=== PATIENT | female | born 1950 | race African-American/Black ===

== ENCOUNTER 2025-01-16 16:39 | Emergency (ER) | payer OTHER ==
[2025-01-16 16:49] VITALS: BMI 26.4
[2025-01-16] MEDS ORDERED: ACETAMINOPHEN INJECTION 100 ML ONE (17:58)
[2025-01-16 18:17] LABS: INR 1.25 (0.83-1.09); PROTHROMBIN TIME (PATIENT) 13.6 SEC (9.7-13.0)
[2025-01-16 18:21] LABS: ACTIVATED PTT 27.8 SECONDS (25.2-36.5)
[2025-01-16 18:26] LABS: MCHC 32.0 g/dl (32.2-35.5); MEAN CELL VOLUME 87.4 fl (79.4-94.8); MEAN PLT VOLUME 9.6 fl (9.4-12.3); RDW 14.8 % (12.4-16.6)
[2025-01-16] MEDS: ACETAMINOPHEN 1000 MG/100 ML BAG IVPB ONE (18:28)
[2025-01-16 19:00] LABS: BG HCT 29.0 % (32.4-45.2); VENOUS BASE EXCESS 0.6 mmol/L (-2-2); VENOUS O2 SATURATION 60.9 % (70-80); VENOUS PCO2 36.6 mmHg (38-52); VENOUS PH 7.444 (7.310-7.410)
[2025-01-16 19:02] LABS: GLUCOSE,RANDOM 103.0 mg/dL (74-106)
[2025-01-16 19:03] LABS: TOT PROT 7.3 g/dl (6.4-8.2)
[2025-01-16 19:04] LABS: CO2 21.0 mmol/L (21-32)
[2025-01-16 19:05] LABS: ALK PHOS 115.0 U/L (40-150)
[2025-01-16 19:08] LABS: CREATININE 0.86 mg/dL (0.55-1.3); SGOT/AST 39.0 U/L (5-34); SGPT/ALT 9.0 U/L (0-55)
[2025-01-16 21:41] LABS: URINE APPEARANCE Clear; URINE BILIRUBIN Negative (NEGATIVE); URINE COLOR Yellow; URINE GLUCOSE (UA) Negative (NEGATIVE); URINE KETONE Trace (NEGATIVE); URINE LEUK ESTERASE Negative (NEGATIVE); URINE NITRITE Negative (NEGATIVE); URINE PROTEIN Trace (NEGATIVE); URINE UROBILINOGEN 0.2 mg/dL (0.2-1.0)
[2025-01-17] MEDS ORDERED: ACETAMINOPHEN INJECTION 100 ML ONE ×2 (00:20→06:07)
[2025-01-17] MEDS ORDERED: PIPERACILLIN/TAZOB 3.375 GM 3.375 GM/50 ML BAG IVPB ONE (00:20)
[2025-01-17] MEDS: ACETAMINOPHEN 1000 MG/100 ML BAG IVPB ONE ×2 (00:27→06:14)
[2025-01-17] MEDS: PIPERACILLIN/TAZOB 4.5 GM 3.375 GM in DEXTROSE 5%-WATER 100 ML IVPB ONE (00:59)
[2025-01-17] MEDS ORDERED: VANCOMYCIN 1 GM PREMIX (F) 1 GM/200 ML BAG ONE (01:46)
[2025-01-17] MEDS: VANCOMYCIN 1,000 MG in DEXTROSE 5%-WATER - 250 ML IVPB ONE (02:05)
[2025-01-17 06:28] VITALS: BP 115/66; PULSE 87; RESP 18; TEMP 98.8
== END 2025-01-17 08:06 | disposition short-term general hospital (02) ==
LOC: JER 16:39
PROC: 3E033NZ Introduction of Analgesics, Hypnotics, Sedatives into Peripheral Vein, Percutaneous Approach (ICD-10-PCS; 2025-01-16)
PROC: 3E03329 Introduction of Other Anti-infective into Peripheral Vein, Percutaneous Approach (ICD-10-PCS; principal; 2025-01-17)
PROC: 3E03329 Introduction of Other Anti-infective into Peripheral Vein, Percutaneous Approach (ICD-10-PCS; 2025-01-17)
PROC: 3E033NZ Introduction of Analgesics, Hypnotics, Sedatives into Peripheral Vein, Percutaneous Approach (ICD-10-PCS; 2025-01-17)
PROC: 3E033NZ Introduction of Analgesics, Hypnotics, Sedatives into Peripheral Vein, Percutaneous Approach (ICD-10-PCS; 2025-01-17)
DX: G06.1 Intraspinal abscess and granuloma (principal); R50.9 Fever, unspecified; K62.5 Hemorrhage of anus and rectum; R00.0 Tachycardia, unspecified
CPT/HCPCS: 36415; 71045-TC-FY; 72129-TC; 72132-TC; 80053; 81003; 82803; 83605; 84484; 85025; 85610; 85730; 86850; 86900; 86901; 87040; 87086; 87637-QW; 93005; 93010; 96365; 96368; 96374; 96375; 96376; 99285-25; Q9967